=== PATIENT | male | born 1995 | race Caucasian/White ===

== ENCOUNTER 2017-07-10 17:19 | Emergency (ER) | payer SELFPAY ==
[~2017-07-10] VITALS: Ht 175.3 cm; Wt 80.0 kg
[2017-07-10] MEDS ORDERED: ALBU2.5V13 IH (17:24)
[2017-07-10] MEDS ORDERED: HYDROCODONE/ACETAMINOPHEN 5/325MG TABLET PO ONE (18:15)
[2017-07-10] MEDS ORDERED: TETANUS, DIPHTHERIA, PERTUSSIS VAC/PF 0.5ML (>7YR OLD) IM ONE (18:15)
[2017-07-10] MEDS ORDERED: AMOXICILLIN/POTASSIUM CLAVULANATE 875/125MG TAB PO ONE (18:45)
[2017-07-10] MEDS ORDERED: LIDOCAINE HCL/EPINEPHRINE 1%-EPI 1:100,000 30 ML VIAL INFIL ONE (19:00)
[2017-07-10] MEDS ORDERED: LIDOCAINE 1%/EPI 1:100,000 10 ML VIAL IJ ONE (19:45)
[2017-07-10] MEDS ORDERED: KETOROLAC 60MG/2ML VIAL IM ONE (21:00)
[2017-07-10 21:16] VITALS: BP 140/70
== END 2017-07-10 21:22 | disposition home or self-care (01) ==
LOC: ER 17:19
DX: S41.112A Laceration without foreign body of left upper arm, initial encounter (principal); S81.812A Laceration without foreign body, left lower leg, initial encounter; J45.909 Unspecified asthma, uncomplicated; Y35.893A Legal intervention involving other specified means, suspect injured, initial encounter; W54.0XXA Bitten by dog, initial encounter; Y93.89 Activity, other specified; Y92.89 Other specified places as the place of occurrence of the external cause
CPT/HCPCS: 12004; 29515; 73060; 73590; 90471; 90715; 96372; 99284; J1885; J3490; X7700; Z7610